=== PATIENT | female | born 1935 | race Hispanic/Latino ===

== ENCOUNTER 2019-11-09 21:02 | Inpatient (IN) | payer OTHER ==
[2019-11-09 22:04] LABS: BASOPHILS % (AUTO) 0.1 % (0.0-5.0); EOSINOPHILS % (AUTO) 0.1 % (0.0-8.0); HEMATOCRIT 33.3 % (36-48); LYMPHOCYTES % (AUTO) 11.7 % (21.0-51.0); MEAN CORPUSCULAR HEMOGLOBIN 38.7 pg (27.0-33.0); MEAN CORPUSCULAR VOLUME 117.3 fL (79-99); MONOCYTES % (AUTO) 5.5 % (3.0-13.0); NEUTROPHILS % (AUTO) 81.9 % (40.0-77.0); PLATELET COUNT (AUTO) 173 K/uL (130-400); RED BLOOD CELL COUNT(AUTO) 2.84 MIL/uL (4.00-5.50); RED CELL DISTRIBUTION WIDTH 14.3 % (11.0-15.5); WHITE BLOOD COUNT (AUTO) 10.8 K/uL (4.8-10.8)
[2019-11-09] MEDS ORDERED: ASPIRIN 325 MG TABLET ONE ×2 (22:10→22:28)
[2019-11-09 22:15] LABS: CREATININE 1.8 mg/dL (0.5-1.5); POTASSIUM 5.7 mmol/L (3.5-5.1)
[2019-11-09 22:22] LABS: INR 0.91 (0.85-1.15); PARTIAL THROMBOPLASTIN TIME 23.6 SEC (26.3-35.5); PROTHROMBIN TIME 9.9 SEC (9.6-11.6)
[2019-11-09] MEDS ORDERED: BIVALIRUDIN 250 MG/VIAL IV ONE (22:39)
[2019-11-09] MEDS ORDERED: SODIUM BICARB 50MEQ 50ML VIAL ONE (22:39)
[2019-11-09] MEDS ORDERED: IOHEXOL-350 50ML VIAL IV ONE (22:39)
[2019-11-09] MEDS ORDERED: IOHEXOL 350 MG/ML 100ML INFUS..BTL IV ONE (22:39)
[2019-11-09] MEDS ORDERED: NITROGLYCERIN 2 MG/VIAL VIAL IV ONE (22:39)
[2019-11-09] MEDS ORDERED: LIDOCAINE HCL 2% 20ML ONE (22:39)
[2019-11-09] MEDS ORDERED: HEPARIN SODIUM 1000UNIT/ML 10ML VIAL ONE (22:39)
[2019-11-09] MEDS ORDERED: EPINEPHRINE 1 MG/ML AMPULE ONE (22:39)
[2019-11-09] MEDS ORDERED: DOPAMINE HCL 400 MG/D5%-WATER 0 ML IV ONE (22:40)
[2019-11-09 22:43] LABS: ALBUMIN 3.4 g/dL (3.5-5.0); BILIRUBIN,TOTAL 0.3 mg/dL (0.2-1.0); TOTAL PROTEIN, SERUM 7.4 g/dL (6.0-8.3)
[2019-11-09] MEDS ORDERED: ONDANSETRON HCL 4 MG/2 ML VIAL IV PRN (23:15)
[2019-11-09] MEDS ORDERED: MORPHINE SULFATE 2 MG/ML 1ML SYG IV PRN (23:15)
[2019-11-09 23:23] LABS: TROPONIN I 15.58 ng/mL (0.00-0.06)
--- NOTE | 2019-11-10 00:43 | NUR ---
REPORT RECEIVED FORM ER. PATIENT ARRIVED TO X4 BED ICU ROOM ACCOMPAINIED BY DAUGHTER. DAUGHTER WANTED TO STAY OVERNIGHT BUT EXPLAINED THAT SHE COULD COME BACK IN THE AM. CORONA ESPITIA NP EXPLAINED THAT THERE ARE OTHER OPTIONS WHERE THE DAUGHTER MIGHT BE ABLE TO STAY BUT DAUGHTER PREFERRED TO TAKE PATIENT HOME . DAUGHTER IS AWARE OF PATIENT'S POOR PROGNOSIS HAD ALREADY SPOKEN TO DR LIRIANO AND WOULD PREFER TO HAVE HER MOTHER AT HOME. DISCHARGE AGAINST MEDICAL ADVICE FORM SIGNED. DAUGHTER COMFORTABLE WITH HER DECISION. Rhona ESPITIA NP AWARE . IV 'S DISCONTINUED AND PATIENT DISCHARGED BY WHEELCHAIR ACCOMPAINED BY DAUGHTER.
[2019-11-10] MEDS ORDERED: FAMOTIDINE/PF 20 MG/2 ML VIAL IV SCH (09:00)
== END 2019-11-10 00:43 | disposition left against medical advice (07) | DRG 281 ==
LOC: EDH 21:02 → OBSVTOIN 22:10 → EDHIP 22:10 → DAHIP 11-10 00:20
PROVIDERS: ADMIT Internal Medicine; ATTEND Internal Medicine
DX: I21.09 ST elevation (STEMI) myocardial infarction involving other coronary artery of anterior wall (principal); I69.351 Hemiplegia and hemiparesis following cerebral infarction affecting right dominant side; R47.01 Aphasia; I11.0 Hypertensive heart disease with heart failure; I50.9 Heart failure, unspecified; Z90.5 Acquired absence of kidney; Z53.29 Procedure and treatment not carried out because of patient's decision for other reasons; Z66 Do not resuscitate
CPT/HCPCS: 36415; 71045; 80053; 82550; 83605; 83874; 83880; 84145; 84484; 85025; 85610; 85730; 87040; 93005; 99291; 99292; G0378; J0171; J0583; J1265; J1644; J3490; Q9967